=== PATIENT | male | born 1950 | race Caucasian/White ===

== ENCOUNTER 2016-09-14 15:15 | Emergency (ER) | payer MEDICARE ==
[~2016-09-14] VITALS: Ht 182.8 cm; Wt 117.9 kg
[2016-09-14] MEDS ORDERED: LISINOPRIL40 MG PO (15:21)
[2016-09-14] MEDS ORDERED: METOPROLOL TART50 M1 PO (15:21)
[2016-09-14] MEDS ORDERED: LOVASTATIN40 MG PO (15:21)
[2016-09-14] MEDS ORDERED: METFORMIN HCL500 MG PO (15:22)
[2016-09-14] MEDS ORDERED: INDOMETHACIN50 MG PO (15:22)
[2016-09-14] MEDS ORDERED: VALACYCLOVIR HYD1 GM PO (15:36)
[2016-09-14] MEDS ORDERED: DELTASONE20 M1 PO (15:36)
== END 2016-09-14 15:49 | disposition home or self-care (01) ==
LOC: ED 15:15
DX: R21 Rash and other nonspecific skin eruption (principal); Z79.899 Other long term (current) drug therapy

== ENCOUNTER → 2020-05-06 | Outpatient (CLI) | payer MEDICARE ==
[~2020-05-06] MED LIST: DELTASONE20 M1 PO; INDOMETHACIN50 MG PO; LISINOPRIL40 MG PO; LOVASTATIN40 MG PO; METFORMIN HCL500 MG PO; METOPROLOL TART50 M1 PO; VALACYCLOVIR HYD1 GM PO
== END | disposition home or self-care (01) ==
LOC: CARD 12:00
PROVIDERS: ATTEND Family Medicine
DX: I08.3 Combined rheumatic disorders of mitral, aortic and tricuspid valves (principal)

== ENCOUNTER → 2020-07-09 | Outpatient (CLI) | payer MEDICARE ==
[~2020-07-09] MED LIST changes: +GLUCOPHAGE1000 MG PO; -METFORMIN HCL500 MG PO
== END | disposition home or self-care (01) ==
LOC: CARD 02:35
PROVIDERS: ATTEND Internal Medicine Cardiovascular Disease
DX: I35.0 Nonrheumatic aortic (valve) stenosis (principal); I25.10 Atherosclerotic heart disease of native coronary artery without angina pectoris; I10 Essential (primary) hypertension; Z95.1 Presence of aortocoronary bypass graft

== ENCOUNTER → 2023-11-13 | Outpatient (CLI) | payer MEDICARE | END | disposition home or self-care (01) | LOC: CARD 10-30 12:00 | PROVIDERS: ATTEND Student in an Organized Health Care Education/Training Program | DX: I08.3 Combined rheumatic disorders of mitral, aortic and tricuspid valves (principal); I49.9 Cardiac arrhythmia, unspecified; R00.1 Bradycardia, unspecified ==

== ENCOUNTER → 2024-12-16 | Outpatient (CLI) | payer MEDICARE | END | disposition home or self-care (01) | LOC: CARD 02:36 | PROVIDERS: ATTEND Nurse Practitioner Family | DX: I35.0 Nonrheumatic aortic (valve) stenosis (principal); I48.91 Unspecified atrial fibrillation; I10 Essential (primary) hypertension; Z95.1 Presence of aortocoronary bypass graft ==